=== PATIENT | female | born 1970 | race Caucasian/White ===

== ENCOUNTER → 2018-06-01 | Outpatient (CLI) | payer MEDICAID, OTHER ==
[2018-06-01 12:53] LABS: HEMATOCRIT 43.7 % (37.0-47.0); HEMOGLOBIN 13.5 g/dl (12.5-16.0); MEAN CELL VOLUME 76 fl (80.0-100.0); MEAN CORPUSCULAR HEMOGLOBIN 23 pg (27.0-31.0); MEAN CORPUSCULAR HGB CONC 31 g/dl (33.0-37.0); MEAN PLATELET VOLUME 9.2 fl (7.4-10.4); PLATELET COUNT 346 K/mm3 (130-400); RED BLOOD COUNT 5.78 M/mm3 (4.10-5.30); REDCELL DISTRIBUTION WIDTH-CV 17.3 % (11.5-14.5)
[2018-06-01 13:05] LABS: ALBUMIN 3.9 gm/dL (3.5-5.0); BILIRUBIN,TOTAL 0.3 mg/dL (0.0-1.0); CALCIUM 9.6 mg/dL (8.4-10.2); CHOLESTEROL RISK RATIO 3.5; CREATININE, serum 1.03 mg/dL (0.52-1.25); POTASSIUM 3.7 mmol/L (3.4-5.0); TOTAL PROTEIN 7.1 gm/dL (6.4-8.2)
[2018-06-01 13:10] LABS: MUCOUS Present /lpf; PH 5 (5-8); SQUAMOUS EPITHELIAL 0-2 /hpf; URINE APPEARANCE Clear; URINE BACTERIA None Seen /hpf; URINE BILIRUBIN Negative (NEGATIVE); URINE BLOOD Negative (NEGATIVE); URINE COLOR Yellow; URINE GLUCOSE Negative (NEGATIVE); URINE KETONE Trace (NEGATIVE); URINE LEUKOCYTE ESTERASE Negative (NEGATIVE); URINE NITRATE Negative (NEGATIVE); URINE PROTEIN(semi-quant) Negative (NEGATIVE); URINE RBC 0-2 /hpf; URINE UROBILINOGEN Negative (NEGATIVE); URINE WBC 0-2 /hpf
[2018-06-01 13:34] LABS: THYROID STIMULATING HORMONE 2.75 uIU/mL (0.465-4.680)
[2018-06-01 13:36] LABS: COLLECTION METHOD CLEAN CATCH
== END ==
LOC: COL.LAB 11:15
PROVIDERS: Nurse Practitioner Family
DX: F32.9 Major depressive disorder, single episode, unspecified (principal)

== ENCOUNTER → 2019-02-09 | Outpatient (CLI) | payer MEDICAID ==
[2019-02-09 18:11] LABS: CALCIUM 9.1 mg/dL (8.4-10.2); CREATININE, serum 1.02 (0.52-1.25); POTASSIUM 3.8 mmol/L (3.4-5.0)
== END ==
LOC: ZCOL.LAB 17:03
PROVIDERS: Family Medicine
DX: I10 Essential (primary) hypertension (principal); G62.9 Polyneuropathy, unspecified

== ENCOUNTER → 2019-03-29 | Outpatient (CLI) | payer BC | LOC: COL.RAD 13:50 | DX: R05 Cough (principal); R06.00 Dyspnea, unspecified ==

== ENCOUNTER 2019-07-21 15:08 | Emergency (ER) | payer BC ==
[~2019-07-21] VITALS: Ht 162.6 cm; Wt 118.2 kg
[2019-07-21 15:13] VITALS: TEMP 97.4
[2019-07-21] MEDS ORDERED: BONINE25 MG PO (16:54)
[2019-07-21 17:00] LABS: BASO % 0.3 % (0.0-2.0); EOS # 0.1 (0.0-0.7); EOS % 1.2 % (0-4.0); GRAN # 5.4 (1.4-6.5); GRAN % 56.7 % (42.2-75.2); HEMATOCRIT 46.4 % (37.0-47.0); HEMOGLOBIN 14.5 g/dl (12.5-16.0); LYMPH # 3.4 (1.2-3.4); LYMPH % 35.7 % (20.0-51.0); MEAN CELL VOLUME 77 fl (80.0-100.0); MEAN CORPUSCULAR HEMOGLOBIN 24 pg (27.0-31.0); MEAN CORPUSCULAR HGB CONC 31 g/dl (33.0-37.0); MEAN PLATELET VOLUME 9.3 fl (7.4-10.4); MONO # 0.5 (0.1-0.6); MONO % 5.7 % (1.7-9.3); PLATELET COUNT 394 K/mm3 (130-400); RED BLOOD COUNT 6.06 M/mm3 (4.10-5.30); REDCELL DISTRIBUTION WIDTH-CV 17.1 % (11.5-14.5)
[2019-07-21 17:12] LABS: ALBUMIN 4.4 gm/dL (3.5-5.0); BILIRUBIN,TOTAL 0.3 mg/dL (0.0-1.0); C-REACTIVE PROTEIN 1.6 mg/dL (0.0-0.9); CALCIUM 9.8 mg/dL (8.4-10.2); CREATININE, serum 0.87 (0.52-1.25); POTASSIUM 4.1 mmol/L (3.4-5.0); TOTAL PROTEIN 7.9 gm/dL (6.4-8.2)
[2019-07-21 18:13] LABS: COLLECTION METHOD CLEAN CATCH
[2019-07-21 18:32] LABS: PH 7 (5-8); SQUAMOUS EPITHELIAL 0-2 /hpf; URINE APPEARANCE Clear; URINE BACTERIA Rare /hpf; URINE BILIRUBIN Negative (NEGATIVE); URINE BLOOD Negative (NEGATIVE); URINE COLOR Yellow; URINE GLUCOSE Negative (NEGATIVE); URINE KETONE Negative (NEGATIVE); URINE LEUKOCYTE ESTERASE Negative (NEGATIVE); URINE NITRATE Negative (NEGATIVE); URINE PROTEIN(semi-quant) Negative (NEGATIVE); URINE RBC 0-2 /hpf; URINE UROBILINOGEN Negative (NEGATIVE)
[2019-07-21] MEDS ORDERED: NORCO 325 MG-51 TAB PO (19:16)
[2019-07-21] MEDS ORDERED: ZOFRAN ODT4 MG PO (19:16)
[2019-07-21 19:40] VITALS: BP 138/86; PULSE 80
== END 2019-07-21 19:45 | disposition home or self-care (01) ==
LOC: COL.ER 15:08
PROVIDERS: Physician Assistant
DX: R10.11 Right upper quadrant pain (principal); E11.9 Type 2 diabetes mellitus without complications; I10 Essential (primary) hypertension; K21.9 Gastro-esophageal reflux disease without esophagitis; Z90.710 Acquired absence of both cervix and uterus
CPT/HCPCS: J1170; J7030; Q9967

== ENCOUNTER 2019-08-17 10:35 | Day surgery (SDC) | payer BC ==
[2019-08-17] VITALS (7 sets, daily range): BP systolic 130–142; BP diastolic 63–80; PULSE 16–93; TEMP 97.4–97.7
[~2019-08-17] VITALS: Ht 162.6 cm; Wt 116.0 kg
[~2019-08-17 10:35] MED LIST: BONINE25 MG PO; NORCO 325 MG-51 TAB PO; ZOFRAN ODT4 MG PO
[2019-08-17] MEDS ORDERED: ZOFRAN 4MG T4 MG/TAB PO (11:14)
[2019-08-17] MEDS ORDERED: NEURONTIN800 MG/TAB PO (11:15)
--- NOTE | 2019-08-17 11:16 | NUR ---
TO RM AT 1043- CALL LIGHT IN REACH NO ONE WITH PATIENT - WILL CALL TO PICK HER UP AFTER SURGERY
--- NOTE | 2019-08-17 11:27 | NUR ---
RECEIVED IC-GREEN ORDERED.
[2019-08-17] MEDS ORDERED: NORCO 325 MG-51 TAB PO (14:10)
[2019-08-17] MEDS ORDERED: MOTRIN 600600 MG/TAB PO (14:10)
--- NOTE | 2019-08-17 15:00 | NUR ---
TO RM 7 PER CART FROM PACU. OPENS EYES TO ANSWER QUESTIONS AND FALLS BACK TO SLEEP. C/O PAIN 5/10 AND "LITTLE NAUSEA" 5 INCISIONS WITH REYES SET. REYES SET CLEAN DRY AND INTACT.
--- NOTE | 2019-08-17 15:15 | NUR ---
SLEEPING QUIETLY. AWAKENS WITH VERBAL STIMULI AND FALLS BACK TO SLEEP.
--- NOTE | 2019-08-17 15:45 | NUR ---
NO CHANGES. SLEEPING AND AWAKENS EASILY AND FALLS BACK TO SLEEP.
--- NOTE | 2019-08-17 16:00 | NUR ---
OFFERED PATIENT SOMETHING TO DRINK. REFUSED AND STATED SHE FELT WIERD AND WANTED TO SLEEP. COOL WASHCLOTH APPLIED TO FOREHEAD.
--- NOTE | 2019-08-17 17:03 | NUR ---
MORE AWAKE AND TALKING TO STAFF. SAT UP IN BED. RECEIVED CRACKERS AND WATER. ENCOURAGED PATIENT TO PASS GAS. C/O PAIN 4/10 AT CURRENT TIME. NO C/O NAUSEA AT THIS TIME.
--- NOTE | 2019-08-17 17:12 | NUR ---
REPORT GIVEN TO AKHIL WILLOUGHBY
--- NOTE | 2019-08-17 18:05 | NUR ---
1730 Patient ambulates to the restroom with standby assist. She voids a large amount of clear/yellow urine and returns to room. Patient has some nausea upon returning to room from voiding. She is given Zofran for nausea. She states "I am ready to go home". 175 Discharge instructions are discussed. PIV removed with catheter intact and hemostasis achieved. Assisted patient to change to her clothing 1800 Patient is escorted to the exit via wheelchair. She is discharged to home with ride in private vehicle at 1800.
== END 2019-08-17 18:00 | disposition home or self-care (01) ==
LOC: SDCO 10:35
DX: K80.10 Calculus of gallbladder with chronic cholecystitis without obstruction (principal); J44.9 Chronic obstructive pulmonary disease, unspecified; E11.42 Type 2 diabetes mellitus with diabetic polyneuropathy; Z79.84 Long term (current) use of oral hypoglycemic drugs; Z86.73 Personal history of transient ischemic attack (TIA), and cerebral infarction without residual deficits; K21.0 Gastro-esophageal reflux disease with esophagitis; G47.33 Obstructive sleep apnea (adult) (pediatric); E66.01 Morbid (severe) obesity due to excess calories; Z68.41 Body mass index [BMI] 40.0-44.9, adult; G20 Parkinson's disease; G40.909 Epilepsy, unspecified, not intractable, without status epilepticus; F41.9 Anxiety disorder, unspecified; F32.9 Major depressive disorder, single episode, unspecified; M79.7 Fibromyalgia; E78.5 Hyperlipidemia, unspecified; I10 Essential (primary) hypertension; E03.9 Hypothyroidism, unspecified; G43.909 Migraine, unspecified, not intractable, without status migrainosus; R20.2 Paresthesia of skin; Z88.2 Allergy status to sulfonamides; R11.2 Nausea with vomiting, unspecified; K58.9 Irritable bowel syndrome, unspecified; M54.16 Radiculopathy, lumbar region
CPT/HCPCS: A4216; J0690; J1100; J1170; J2405; J2704; J3010; J7120

== ENCOUNTER → 2023-08-20 | Outpatient (CLI) | payer BC ==
[~2023-08-20] MED LIST changes: +MOTRIN 600600 MG/TAB PO; +NEURONTIN800 MG/TAB PO; +ZOFRAN 4MG T4 MG/TAB PO
[2023-08-20 15:01] LABS: BASO # 0.1 K/mm3 (0.0-0.2); BASO % 0.7 % (0.0-2.0); EOS # 0.2 K/mm3 (0.0-0.7); EOS % 1.9 % (0.0-4.0); GRAN # 4.3 K/mm3 (1.4-6.5); GRAN % 51.3 % (42.2-75.2); HEMATOCRIT 50.1 % (37.0-47.0); HEMOGLOBIN 16.5 g/dl (12.5-16.0); LYMPH # 3.4 K/mm3 (1.2-3.4); LYMPH % 40.8 % (20.0-51.0); MEAN CELL VOLUME 79 fl (80.0-100.0); MEAN CORPUSCULAR HEMOGLOBIN 26 pg (27-31); MEAN CORPUSCULAR HGB CONC 33 g/dl (33.0-37.0); MEAN PLATELET VOLUME 10.1 fl (7.4-10.4); MONO # 0.4 K/mm3 (0.1-0.6); MONO % 4.7 % (1.7-9.3); PLATELET COUNT 226 K/mm3 (130-400); RED BLOOD COUNT 6.32 M/mm3 (4.10-5.30); REDCELL DISTRIBUTION WIDTH-CV 15.1 % (11.5-14.5)
[2023-08-20 15:18] LABS: ALANINE AMINOTRANSFERASE 31 U/L (0-55); ALBUMIN 3.2 gm/dL (3.5-5.0); ALKALINE PHOSPHATASE 89 U/L (40-150); ANION GAP 8 mmol/L (7-16); AST,SGOT 20 U/L (5-34); BILIRUBIN,TOTAL 0.2 mg/dL (0.2-1.2); BLOOD UREA NITROGEN 7 mg/dL (10-20); CALCIUM 9.1 mg/dL (8.4-10.2); CHLORIDE 109 mmol/L (98-107); CREATININE, serum 1.03 mg/dL (0.57-1.11); GLUCOSE 109 mg/dL (70-99); POTASSIUM 3.6 mmol/L (3.5-4.5); SODIUM 140 mmol/L (136-145); TOTAL PROTEIN 6.2 gm/dL (6.2-8.1)
[2023-08-20 15:38] LABS: THYROID STIMULATING HORMONE 3.606 uIU/mL (0.350-4.940)
[2023-08-20 16:01] LABS: TROPONIN-I < 0.010 ng/mL (0.00-0.033)
== END ==
LOC: COL.LAB 14:19
PROVIDERS: Student in an Organized Health Care Education/Training Program
DX: E11.69 Type 2 diabetes mellitus with other specified complication (principal); R53.83 Other fatigue; R42 Dizziness and giddiness